=== PATIENT | female | born 1975 ===

== ENCOUNTER 2019-01-23 01:31 | Emergency (ER) | payer SELFPAY ==
--- NOTE | 2019-01-23 02:21 | XRay Report ---
CHEST 2 VIEWS INDICATION / CLINICAL INFORMATION: cough. COMPARISON: None available. FINDINGS: SUPPORT DEVICES: None. HEART / MEDIASTINUM: No significant abnormality. LUNGS / PLEURA: No significant pulmonary or pleural abnormality. No pneumothorax. ADDITIONAL FINDINGS: No significant additional findings. IMPRESSION: 1. No acute findings. Signer Name: Tra Shahid MD Signed: 01/23/2019 2:17 AM Workstation Name: [id number]
--- NOTE | 2019-01-23 02:27 | Emergency Department Report ---
- General Chief Complaint: Adult Asthma Stated Complaint: ASTHMA Time Seen by Provider: 01/23/19 02:10 Source: patient Mode of arrival: Ambulatory Limitations: No Limitations - History of Present Illness Initial Comments: Patient is a 43-year-old female that presents emergency room with complaints of shortness of breath and cough and upper respiratory infection symptoms. Patient states her symptoms been going on for 2 days. Patient states they are worsening. Patient states she has a history of asthma. Patient states she is out of her asthma medications. Patient denies fever. Patient denies chills. Patient denies chest pain. MD Complaint: cough, rhinorrhea, nasal congestion -: Sudden, days(s) Severity: moderate Consistency: constant - Related Data Previous Rx's Medication Instructions Recorded Last Taken Type Doxycycline Hyclate [Doxycycline 100 mg PO Q12HR 10 Days #20 tab 01/23/19 Unknown Rx Hyclate TAB] methylPREDNISolone [Medrol 4MG 4 mg PO DAILY 6 Days #1 tab.ds.pk 01/23/19 Unknown Rx DOSEPAK (21 tabs)] Allergies Allergy/AdvReac Type Severity Reaction Status Date / Time No Known Allergies Allergy Unverified 01/23/19 01:39 ED Review of Systems ROS: Stated complaint: ASTHMA Other details as noted in HPI Constitutional: denies: chills, fever Eyes: denies: eye pain, eye discharge, vision change ENT: denies: ear pain Respiratory: cough, shortness of breath. denies: wheezing Cardiovascular: denies: chest pain, palpitations Endocrine: no symptoms reported Gastrointestinal: denies: abdominal pain, nausea, diarrhea Genitourinary: denies: urgency, dysuria, discharge Musculoskeletal: denies: back pain, joint swelling, arthralgia Skin: denies: rash, lesions Neurological: denies: headache, weakness, paresthesias Psychiatric: denies: anxiety, depression Hematological/Lymphatic: denies: easy bleeding, easy bruising ED Past Medical Hx - Past Medical History Previous Medical History?: Yes Hx Asthma: Yes - Surgical History Past Surgical History?: No - Social History Smoking Status: Never Smoker Substance Use Type: None - Medications Home Medications: Home Medications Medication Instructions Recorded Confirmed Last Taken Type Doxycycline Hyclate [Doxycycline 100 mg PO Q12HR 10 Days #20 tab 01/23/19 Unknown Rx Hyclate TAB] methylPREDNISolone [Medrol 4MG 4 mg PO DAILY 6 Days #1 tab.ds.pk 01/23/19 Unknown Rx DOSEPAK (21 tabs)] ED Physical Exam - General Limitations: No Limitations General appearance: alert, in no apparent distress - Head Head exam: Present: atraumatic, normocephalic - Eye Eye exam: Present: normal appearance - ENT ENT exam: Present: mucous membranes moist, other (mild erythema to the throat. No exudate) - Neck Neck exam: Present: normal inspection, full ROM. Absent: tenderness, meningismus - Respiratory Respiratory exam: Present: normal lung sounds bilaterally. Absent: respiratory distress, wheezes, rales, rhonchi, chest wall tenderness, accessory muscle use, decreased breath sounds - Cardiovascular Cardiovascular Exam: Present: regular rate, normal rhythm. Absent: systolic murmur, diastolic murmur, rubs, gallop - GI/Abdominal GI/Abdominal exam: Present: soft, normal bowel sounds. Absent: distended, tenderness, guarding - Rectal Rectal exam: Present: deferred - Extremities Exam Extremities exam: Present: normal inspection - Back Exam Back exam: Present: normal inspection - Neurological Exam Neurological exam: Present: alert, oriented X3 - Psychiatric Psychiatric exam: Present: normal affect, normal mood - Skin Skin exam: Present: warm, dry, intact, normal color. Absent: rash ED Course Vital Signs 01/23/19 01/23/19 01/23/19 01:35 02:16 02:17 Temperature 98.7 F 98.7 F Pulse Rate 77 81 Respiratory 12 19 Rate Blood Pressure 153/89 174/91 Blood Pressure 171/90 [Left] O2 Sat by Pulse 97 99 96 Oximetry 01/23/19 01/23/19 02:30 02:45 Temperature Pulse Rate Respiratory Rate Blood Pressure 174/91 Blood Pressure 158/91 [Left] O2 Sat by Pulse 98 Oximetry - Reevaluation(s) Reevaluation #1: I discussed all clinical findings and result patient. Patient stable for discharge. Patient was discharged home. Patient will be given antibiotics and steroids. Patient given discharge instructions. Patient voiced understanding of discharge instructions. 01/23/19 02:23 ED Medical Decision Making - Radiology Data Radiology results: report reviewed, image reviewed interpreted by me: No acute findings on chest x-ray. - Medical Decision Making Patient is a 43-year-old female that presents emergency room with complaints of cough and asthmatic sounds. Patient complains of shortness of breath and wheezing. Patient's clinical findings are consistent with bronchitis and upper respiratory infection. Patient given steroids and antibiotics. Patient denied any wheezing in the ER. Patient had a chest x-ray done and was negative. She is stable for discharge. Patient discharged home. He is vital signs stable. - Differential Diagnosis cough. Wheeze. URI. Bronchitis. Critical care attestation.: If time is entered above; I have spent that time in minutes in the direct care of this critically ill patient, excluding procedure time. ED Disposition Clinical Impression: SOB (shortness of breath), Cough, Bronchitis Upper respiratory infection Qualifiers: URI type: unspecified URI Qualified Code(s): J06.9 - Acute upper respiratory infection, unspecified Disposition: TO HOME OR SELFCARE Is pt being admited?: No Does the pt Need Aspirin: No Condition: Stable Instructions: Upper Respiratory Infection (ED), Acute Bronchitis (ED) Additional Instructions: Patient to follow-up with primary care in 2-3 days. Patient to return to ER if condition worsens. Patient to rest. Patient to increase water. Patient to take meds as directed. Patient to take Tylenol or ibuprofen when necessary for pain or fever. Prescriptions: Doxycycline Hyclate [Doxycycline Hyclate TAB] 100 mg PO Q12HR 10 Days #20 tab methylPREDNISolone [Medrol 4MG DOSEPAK (21 tabs)] 4 mg PO DAILY 6 Days #1 tab.ds.pk Referrals: PRIMARY CARE, [Primary Care Provider] - 3-5 Days Time of Disposition: 02:29
[2019-01-23 03:49] VITALS: BP 158/91
== END 2019-01-23 02:45 | disposition home or self-care (01) ==
LOC: ED 01:31
DX: J40 Bronchitis, not specified as acute or chronic (principal); J06.9 Acute upper respiratory infection, unspecified; Z79.899 Other long term (current) drug therapy
CPT/HCPCS: 71046

== ENCOUNTER 2020-06-29 23:16 | Inpatient (IN) | payer OTHER ==
[2020-06-29] MEDS ORDERED: ACETAMINOPHEN 500 MG TAB PO STA (23:43)
[2020-06-29] MEDS ORDERED: AZITHROMYCIN/NS 500 MG/250 ML 500 MG/250 ML BAG IV SCH (23:45)
[2020-06-29] MEDS ORDERED: SODIUM CHLORIDE 0.9% 1000 ML IV SOLN IV ONE (23:56)
[2020-06-29] MEDS ORDERED: cefTRIAXone/NS 2 GM/100 ML 2 GM/100 ML BAG IV ONE (23:57)
[2020-06-29] MEDS ORDERED: dexAMETHasone 4 MG/ML VIAL IV ONE (23:57)
--- NOTE | 2020-06-29 23:58 | Emergency Department Report ---
ED Shortness of Breath HPI - General Chief Complaint: Back Pain/Injury Stated Complaint: CRISTIAN/CHEST PAIN Time Seen by Provider: 06/29/20 23:49 Source: patient Mode of arrival: Ambulatory Limitations: No Limitations - History of Present Illness Initial Comments: Patient is a 44-year-old female that presents emergency room with complaints of chest pain and back pain and shortness of breath. Patient states that her chest pain is in her bilateral lower ribs. Patient states the pain is a 5 out of 10. Patient states that the chest pain is better with rest and worse with deep breath and cough and movement. Patient also complains of cough which is a dry cough. Patient complains of fever and chills. Patient states the back pain is in her mid upper back and is a 5 out of 10. Patient states the back pain is better with rest and worse with movement and cough. Patient states that her shortness of breath is better with rest and worse with exertion. Patient states she saw her primary care yesterday and was given doxycycline and meloxicam. Patient states she is not sure why he gave her the antibiotics. Patient has not been tested for COVID-19. Patient denies recent travel. Patient denies recent international travel. Patient denies exposure to the novel coronavirus. Patient denies sick contacts. Patient denies loss of smell.. Patient denies diarrhea. Patient denies coming in contact with anybody with symptoms of the novel coronavirus. Patient states she is not had the COVID-19 vaccine. Complaint: shortness of breath, cough -: Sudden, days(s) Radiation: back, other (Chest) Pain Scale: 5 Quality: throbbing Consistency: constant Improves With: rest Worsens With: exertion Context: recent URI Associated Symptoms: chest pain, fever, cough Treatments Prior to Arrival: other (Doxycycline and meloxicam) - Related Data Home Oxygen Therapy: No Previous Rx's Medication Instructions Recorded Last Taken Type Doxycycline Hyclate [Doxycycline 100 mg PO Q12HR 10 Days #20 tab 01/23/19 Unknown Rx Hyclate TAB] methylPREDNISolone [Medrol 4MG 4 mg PO DAILY 6 Days #1 tab.ds.pk 01/23/19 Unknown Rx DOSEPAK (21 tabs)] Allergies Allergy/AdvReac Type Severity Reaction Status Date / Time No Known Allergies Allergy Verified 06/29/20 23:49 ED Review of Systems ROS: Stated complaint: CRISTIAN/CHEST PAIN Other details as noted in HPI Constitutional: chills, fever Eyes: denies: eye pain, eye discharge, vision change ENT: denies: ear pain, throat pain Respiratory: shortness of breath. denies: cough, wheezing Cardiovascular: as per HPI, chest pain. denies: palpitations Endocrine: no symptoms reported Gastrointestinal: denies: abdominal pain, nausea, diarrhea Genitourinary: denies: urgency, dysuria, discharge Musculoskeletal: as per HPI, back pain. denies: joint swelling, arthralgia Skin: denies: rash, lesions Neurological: denies: headache, weakness, paresthesias Psychiatric: denies: anxiety, depression Hematological/Lymphatic: denies: easy bleeding, easy bruising ED Past Medical Hx - Past Medical History Previous Medical History?: Yes Hx Asthma: Yes - Surgical History Past Surgical History?: No - Family History Family history: no significant - Social History Smoking Status: Never Smoker Substance Use Type: None - Medications Home Medications: Home Medications Medication Instructions Recorded Confirmed Last Taken Type Doxycycline Hyclate [Doxycycline 100 mg PO Q12HR 10 Days #20 tab 01/23/19 Unknown Rx Hyclate TAB] methylPREDNISolone [Medrol 4MG 4 mg PO DAILY 6 Days #1 tab.ds.pk 01/23/19 Unknown Rx DOSEPAK (21 tabs)] ED Physical Exam - General Limitations: No Limitations General appearance: alert, in no apparent distress - Head Head exam: Present: atraumatic, normocephalic - Eye Eye exam: Present: normal appearance - ENT ENT exam: Present: mucous membranes moist - Neck Neck exam: Present: normal inspection - Respiratory Respiratory exam: Present: rhonchi, decreased breath sounds - Cardiovascular Cardiovascular Exam: Present: regular rate, normal rhythm. Absent: systolic murmur, diastolic murmur, rubs, gallop - GI/Abdominal GI/Abdominal exam: Present: soft, normal bowel sounds - Extremities Exam Extremities exam: Present: normal inspection - Back Exam Back exam: Present: normal inspection - Neurological Exam Neurological exam: Present: alert, oriented X3 - Psychiatric Psychiatric exam: Present: normal affect, normal mood - Skin Skin exam: Present: warm, dry, intact, normal color. Absent: rash ED Course Vital Signs 06/29/20 06/30/20 06/30/20 23:32 00:00 00:16 Temperature 101.4 F H Pulse Rate 125 H 121 H 115 H Respiratory 18 24 24 Rate Blood Pressure 147/91 129/100 130/85 O2 Sat by Pulse 94 99 96 Oximetry 06/30/20 06/30/20 06/30/20 00:46 00:51 01:00 Temperature Pulse Rate 110 H 107 H Respiratory 19 18 26 H Rate Blood Pressure 124/63 130/85 O2 Sat by Pulse 97 98 Oximetry 06/30/20 06/30/20 06/30/20 01:15 01:45 02:10 Temperature 98.5 F Pulse Rate 104 H 103 H Respiratory 21 25 H Rate Blood Pressure 132/61 O2 Sat by Pulse 98 98 Oximetry - Reevaluation(s) Reevaluation #1: Patient's baseline oxygen saturation 94%. Patient's oxygen saturation decreased to 88% on ambulation. 06/29/20 23:58 Reevaluation #2: Patient is heart rate is improving. 06/30/20 01:26 Reevaluation #3: Patient's fever is improved. Patient heart rate is improved. Patient placed on oxygen. Patient has received 2 L of fluid and the rest of the 3 L of fluids regi l be held. I discussed all results with patient. I discussed plan of care with patient. Patient agrees with plan of care and admission. Patient to be admitted to the hospitalist service. 06/30/20 02:26 - Consultations Consultation #1: Hospitalist consulted for admission. Hospitalist to admit patient. 06/30/20 02:27 Consultation #2: Vascular surgery consulted. Dr. Louie agrees with current plan of care. 06/30/20 03:07 ED Medical Decision Making - Lab Data Result diagrams: 06/30/20 00:01 06/30/20 00:01 - EKG Data -: EKG Interpreted by Me EKG shows normal: sinus rhythm, axis, intervals, QRS complexes, ST-T waves Rate: tachycardia - Radiology Data Radiology results: report reviewed, image reviewed interpreted by me: CHEST 1 VIEW 06/29/2020 11:07 PM INDICATION / CLINICAL INFORMATION: possible Sepsis. COMPARISON: None available. FINDINGS: SUPPORT DEVICES: None. HEART / MEDIASTINUM: Moderate cardiomegaly LUNGS / PLEURA: Increased opacity right base likely represents a combination of pleural fluid and consolidation. Left base not well evaluated due to body habitus. No pneumothorax. ADDITIONAL FINDINGS: No significant additional findings. IMPRESSION: 1. Suspected left basilar effusion with associated consolidation. 2. Stable cardiomegaly. CTA CHEST WITH CONTRAST INDICATION / CLINICAL INFORMATION: Patient complains of shortness of breath. Tachicardia, Hypoxia. TECHNIQUE: Axial CT images were obtained through the chest after injection of IV contrast. 3 plane MIP and/or 3D reconstructions were produced. All CT scans at this location are performed using CT dose reduction for ALARA by means of automated exposure control. COMPARISON: None available. FINDINGS: PULMONARY ARTERIES: No pulmonary emboli. THORACIC AORTA: No significant abnormality. HEART: No significant abnormality. CORONARY ARTERY CALCIFICATION: None. MEDIASTINUM / JOSSELIN: No significant abnormality. PLEURA: Small right effusion. No pneumothorax. LUNGS: Patchy bilateral pneumonia with more dense infiltrate at the right lower lobe worrisome for infarct. ADDITIONAL FINDINGS: Prominent nodes right axilla. The largest measures 1.3 cm in the greatest short axis dimension. UPPER ABDOMEN: No acute findings. SKELETAL STRUCTURES: No significant osseous abnormality. IMPRESSION: 1. Limited evaluation of the pulmonary arteries. Right lower lobe pulmonary embolus with prominent associated infarct. 2. Patchy infiltrates typical of Covid 19 infection. 3. Mildly prominent right axillary nodes may be reactive. - Medical Decision Making Patient is a 44-year-old female that presents emergency room with complaints of bilateral lower rib pain, shortness of breath, fever and chills. Patient had a sepsis protocol activated from triage due to the patient's high fever and tachycardia. Patient initially had 4.5 L of fluid or in accordance with the sepsis protocol however 1/2 to 2 L were given and the rest were held since the patient was found to have Covid. Patient was started on Rocephin and Zithromax and Decadron immediately after initial evaluation. Patient had labs done which were multiple abnormalities. Lab abnormalities include elevated D-dimer, elevated WBC, elevated COVID-19 inflammatory markers, abnormal chemistry. Patient had a chest x-ray shows unilateral pneumonia. Patient then had a CTA to rule out a PE after an elevated D-dimer, hypoxia and tachycardia noted. Patient CTA of the chest shows a RIGHT PE with pulmonary infarct. Patient started on a heparin protocol with a heparin bolus. Patient admitted to the ICU and to the hospital service for further evaluation and treatment. Critical care time documented due to the multiple reassessments, prolonged time at the bedside, interpretation of diagnostics and labs. - Differential Diagnosis Chest pain, shortness of breath, Covid, PE, pneumonia, hypoxia Critical Care Time: Yes Critical care time in (mins) excluding proc time.: 35 Critical care attestation.: If time is entered above; I have spent that time in minutes in the direct care of this critically ill patient, excluding procedure time. Critical Care Time: 35 MINUTES ED Disposition Clinical Impression: SOB (shortness of breath), Tachycardia, Elevated d-dimer, Pulmonary infarction, Person under investigation for COVID-19 Respiratory failure Qualifiers: Chronicity: acute Respiratory failure complication: hypoxia Qualified Code(s): J96.01 - Acute respiratory failure with hypoxia Sepsis Qualifiers: Sepsis type: sepsis due to unspecified organism Sepsis acute organ dysfunction status: with acute organ dysfunction Severe sepsis acute organ dysfunction type: acute respiratory failure Acute respiratory failure type: with hypoxia Severe sepsis shock status: without septic shock Qualified Code(s): A41.9 - Sepsis, unspecified organism Pneumonia Qualifiers: Pneumonia type: due to unspecified organism Laterality: unspecified laterality Lung location: unspecified part of lung Qualified Code(s): J18.9 - Pneumonia, unspecified organism Pulmonary embolism Qualifiers: Pulmonary embolism type: unspecified Chronicity: acute Acute cor pulmonale presence: without acute cor pulmonale Qualified Code(s): I26.99 - Other pulmonary embolism without acute cor pulmonale Disposition: OP ADMIT IP TO THIS HOSP Is pt being admited?: Yes Does the pt Need Aspirin: No Condition: Critical Instructions: Bacterial Pneumonia (ED) Referrals: PRIMARY CARE, [Primary Care Provider] - 3-5 Days Time of Disposition: :
[2020-06-30 00:20] LABS: Hemoglobin 12.5 gm/dl (10.1-14.3); Mean Corpuscular HGB Conc 34 % (30-34); Mean Corpuscular Volume 90 fl (79-97); Platelet Count 375 K/mm3 (140-440); Red Blood Count 4.11 M/mm3 (3.65-5.03); Red Cell Distribution Width 13.7 % (13.2-15.2)
--- NOTE | 2020-06-30 00:21 | XRay Report ---
CHEST 1 VIEW 06/29/2020 11:07 PM INDICATION / CLINICAL INFORMATION: possible Sepsis. COMPARISON: None available. FINDINGS: SUPPORT DEVICES: None. HEART / MEDIASTINUM: Moderate cardiomegaly LUNGS / PLEURA: Increased opacity right base likely represents a combination of pleural fluid and con solidation. Left base not well evaluated due to body habitus. No pneumothorax. ADDITIONAL FINDINGS: No significant additional findings. IMPRESSION: 1. Suspected left basilar effusion with associated consolidation. 2. Stable cardiomegaly. Signer Name: Khoa Musa MD Signed: 06/30/2020 12:17 AM Workstation Name: [id number]
[2020-06-30 00:35] LABS: INR 1.35 (0.87-1.13)
[2020-06-30 00:44] LABS: Alanine Aminotransferase 16 units/L (7-56); Albumin 3.2 g/dL (3.9-5); Blood Urea Nitrogen 5 mg/dL (7-17); Calcium 8.9 mg/dL (8.4-10.2); Hemolysis Index 3
[2020-06-30 00:47] LABS: BUN/Creatinine Ratio 10
[2020-06-30 01:16] LABS: C-Reactive Protein 31.5 mg/dL (0.00-1.30)
[2020-06-30 01:17] LABS: Total Cells Counted 100
[2020-06-30 01:20] LABS: Platelet Estimate Consistent w Auto; RBC Morphology Normal
[2020-06-30] MEDS ORDERED: HEPARIN 10,000 UNITS/10 ML VIAL IV ONE (02:17)
--- NOTE | 2020-06-30 02:22 | Cat Scan Report ---
CTA CHEST WITH CONTRAST INDICATION / CLINICAL INFORMATION: Patient complains of shortness of breath. Tachicardia, Hypoxia. TECHNIQUE: Axial CT images were obtained through the chest after injection of IV contrast. 3 plane UT P and/or 3D reconstructions were produced. All CT scans at this location are performed using CT dose reduction for ALARA by means of automated exposure control. COMPARISON: None available. FINDINGS: PULMONARY ARTERIES: No pulmonary emboli. THORACIC AORTA: No significant abnormality. HEART: No significant abnormality. CORONARY ARTERY CALCIFICATION: None. MEDIASTINUM / JOSSELIN: No significant abnormality. PLEURA: Small right effusion. No pneumothorax. LUNGS: Patchy bilateral pneumonia with more dense infiltrate at the right lower lobe worrisome for in farct. ADDITIONAL FINDINGS: Prominent nodes right axilla. The largest measures 1.3 cm in the greatest short axis dimension. UPPER ABDOMEN: No acute findings. SKELETAL STRUCTURES: No significant osseous abnormality. IMPRESSION: 1. Limited evaluation of the pulmonary arteries. Right lower lobe pulmonary embolus with prominent as sociated infarct. 2. Patchy infiltrates typical of Covid 19 infection. 3. Mildly prominent right axillary nodes may be reactive. CRITICAL RESULT: Time of Discovery (ADDICTION SPECIALIST/CDT): 1:14 AM Time of Communication (ADDICTION SPECIALIST/CDT): 1:16 AM Licensed Practitioner Receiving Report: Dr. Maier Read-Back Performed: Yes. Signer Name: Khoa Musa MD Signed: 06/30/2020 2:18 AM Workstation Name: [id number]
[2020-06-30] MEDS ORDERED: HEPARIN/ 0.45% NACL DRIP 25,000 UNIT/500 ML BAG IV SCH (03:00)
[2020-06-30] MEDS ORDERED: ONDANSETRON 4 MG/2 ML INJ IV PRN (03:28)
[2020-06-30] MEDS ORDERED: MAGNESIUM HYDROXIDE (MOM) ORAL LIQD UDC PO PRN (03:28)
[2020-06-30] MEDS ORDERED: MORPHINE 2 MG/1 ML INJ IV PRN (03:28)
[2020-06-30] MEDS ORDERED: ACETAMINOPHEN 325 MG TAB PO PRN (03:28)
--- NOTE | 2020-06-30 03:36 | History and Physical Report ---
History of Present Illness Date of examination: 06/30/20 Date of admission: 06/30/20 02:28 Chief complaint: Chest Pain Shortness of Breath History of present illness: 44-year-old -[place] female presents to the emergency room today complaining of chest pain, back pain and shortness of breath which started few days ago. She has also had some low-grade fever and cough. Chest pain and shortness of breath is worse on exertion and improves upon resting. She also experiences some chest discomfort when she takes a deep breath. On a scale of 10 pain was about 5/10 in severity. She had gone to her primary care physician yesterday and was given doxycycline and meloxicam. She has not had any significant improvement. Patient denies any sick contacts and no recent travel. Denies any contact with anyone with COVID-19. Upon arrival in the emergency room today patient was quite tachycardic and tachypneic. She had a fever of 101.4 F. Work-up today, labs reveal leukocytosis of 21.9, she had an hyponatremia of 130. Chest x-ray reveals suspected left basilar effusion with associated consolidation and stable marked cardiomegaly. CT angiogram shows right lower lobe pulmonary embolus with prominent associated impact. Patchy infiltrates typical of COVID-19 infection, mildly prominent right axilla region nodes may be reactive. Patient is being admitted with pneumonia with possible Covid, pulmonary embolus which infarction. Past History Past Medical History: other (Asthma) Past Surgical History: No surgical history Social history: no significant social history Family history: no significant family history Medications and Allergies Allergies Allergy/AdvReac Type Severity Reaction Status Date / Time No Known Allergies Allergy Verified 06/29/20 23:49 Home Medications Medication Instructions Recorded Confirmed Last Taken Type Doxycycline Hyclate [Doxycycline 100 mg PO Q12HR 10 Days #20 tab 01/23/19 Unknown Rx Hyclate TAB] methylPREDNISolone [Medrol 4MG 4 mg PO DAILY 6 Days #1 tab.ds.pk 01/23/19 Unknown Rx DOSEPAK (21 tabs)] Active Meds: Active Medications Acetaminophen (Acetaminophen 325 Mg Tab) 650 mg PO Q6H PRN PRN Reason: Pain MILD(1-3)/Fever >100.5/LAKE Azithromycin (Zithromax/Ns) 500 mg in 250 mls @ 250 mls/hr IV Q24H [facility] Last Admin: 06/30/20 01:09 Dose: 250 mls/hr Documented by: Heparin Sodium/Sodium Chloride (Heparin/ 0.45% Nacl-25,000 Unit/500 Ml) 25,000 unit in 500 mls @ 30 mls/hr IV TITR [facility]; Protocol Last Admin: 06/30/20 02:55 Dose: 1,500 units/hr, 30 mls/hr Documented by: Ceftriaxone Sodium (Rocephin/Ns 2 Gm/100 Ml) 2 gm in 100 mls @ 200 mls/hr IV Q24H [facility]; Protocol Azithromycin (Zithromax/Ns) 500 mg in 250 mls @ 250 mls/hr IV Q24H [facility]; Protocol Magnesium Hydroxide (Magnesium Hydroxide (Mom) Oral Liqd Udc) 30 ml PO Q4H PRN PRN Reason: Constipation Morphine Sulfate (Morphine 2 Mg/1 Ml Inj) 2 mg IV Q4H PRN PRN Reason: Pain, Moderate (4-6) Ondansetron HCl (Ondansetron 4 Mg/2 Ml Inj) 4 mg IV Q8H PRN PRN Reason: Nausea And Vomiting Sodium Chloride (Sodium Chloride 0.9% 10 Ml Flush Syringe) 10 ml IV BID CAREY Sodium Chloride (Sodium Chloride 0.9% 10 Ml Flush Syringe) 10 ml IV PRN PRN PRN Reason: LINE FLUSH Review of Systems Constitutional: fever, chills Ears, nose, mouth and throat: no nasal congestion, no sore throat Cardiovascular: chest pain, no palpitations Respiratory: cough, shortness of breath Gastrointestinal: no abdominal pain, no nausea, no vomiting, no diarrhea Genitourinary Female: no pelvic pain, no flank pain, no dysuria, no hematuria Musculoskeletal: no neck pain, no low back pain Integumentary: no rash, no pruritis Neurological: no headaches, no confusion Psychiatric: no anxiety, no depression Endocrine: no polyphagia, no polydipsia, no polyuria, no nocturia Exam - Constitutional Vitals: Temp Pulse Resp BP Pulse Ox 98.5 F 104 H 22 139/97 99 06/30/20 02:10 06/30/20 03:16 06/30/20 03:16 06/30/20 03:16 06/30/20 03:16 General appearance: Present: mild distress, well-nourished, obese, other (Anxious) - EENT Eyes: Present: PERRL, EOM intact. Absent: scleral icterus ENT: hearing intact, clear oral mucosa, dentition normal - Neck Neck: Present: supple, normal ROM - Respiratory Respiratory effort: normal Respiratory: bilateral: rales - Cardiovascular Rhythm: regular Heart Sounds: Present: S1 & S2. Absent: gallop, systolic murmur, diastolic murmur, rub, click Peripheral Pulses: within normal limits - Abdominal General gastrointestinal: Present: soft, non-tender, non-distended. Absent: mass - Integumentary Integumentary: Present: clear, warm, dry, normal turgor. Absent: rash - Musculoskeletal Musculoskeletal: strength equal bilaterally - Psychiatric Psychiatric: appropriate mood/affect, intact judgment & insight, memory intact, cooperative - Neurologic Neurologic: CNII-XII intact, no focal deficits, moves all extremities Results - Labs CBC & Chem 7: 06/30/20 00:01 06/30/20 00:01 Labs: Abnormal lab results 06/30/20 06/30/20 06/30/20 Range/Units 00:01 00:01 00:01 WBC 21.9 H (4.5-11.0) K/mm3 Seg Neuts % (Manual) 73.0 H (40.0-70.0) % Monocytes % (Manual) 13.0 H (0.0-7.3) % Seg Neutrophils # Man 16.0 H (1.8-7.7) K/mm3 Monocytes # (Manual) 2.8 H (0.0-0.8) K/mm3 PT 16.5 H (12.2-14.9) Sec. INR 1.35 H (0.87-1.13) D-Dimer 3794.72 H (0-234) ng/mlDDU VBG pH (7.320-7.420) Sodium 130 L (137-145) mmol/L Chloride 96.0 L (98-107) mmol/L Carbon Dioxide 20 L (22-30) mmol/L BUN 5 L (7-17) mg/dL Creatinine 0.5 L (0.6-1.2) mg/dL Glucose 162 H (65-100) mg/dL Ferritin (10.0-200.0) ng/mL Alkaline Phosphatase 130 H (35-129) units/L Lactate Dehydrogenase (91-180) units/L C-Reactive Protein (0.00-1.30) mg/dL Albumin 3.2 L (3.9-5) g/dL 06/30/20 06/30/20 06/30/20 Range/Units 00:01 00:04 00:04 WBC (4.5-11.0) K/mm3 Seg Neuts % (Manual) (40.0-70.0) % Monocytes % (Manual) (0.0-7.3) % Seg Neutrophils # Man (1.8-7.7) K/mm3 Monocytes # (Manual) (0.0-0.8) K/mm3 PT (12.2-14.9) Sec. INR (0.87-1.13) D-Dimer (0-234) ng/mlDDU VBG pH 7.439 H (7.320-7.420) Sodium (137-145) mmol/L Chloride (98-107) mmol/L Carbon Dioxide (22-30) mmol/L BUN (7-17) mg/dL Creatinine (0.6-1.2) mg/dL Glucose (65-100) mg/dL Ferritin 336.8 H (10.0-200.0) ng/mL Alkaline Phosphatase (35-129) units/L Lactate Dehydrogenase 318 H (91-180) units/L C-Reactive Protein 31.50 H (0.00-1.30) mg/dL Albumin (3.9-5) g/dL Assessment and Plan - Patient Problems (1) Pneumonia Current Visit: Yes Status: Acute Qualifiers: Pneumonia type: due to unspecified organism Laterality: unspecified laterality Lung location: unspecified part of lung Qualified Code(s): J18.9 - Pneumonia, unspecified organism Plan to address problem: Patient placed on empiric IV antibiotics. We will await culture results. (2) Pulmonary embolism Current Visit: Yes Status: Acute Qualifiers: Pulmonary embolism type: unspecified Chronicity: acute Acute cor pulmonale presence: without acute cor pulmonale Qualified Code(s): I26.99 - Other pulmonary embolism without acute cor pulmonale Plan to address problem: Patient was started on anticoagulation with heparin drip. (3) Pulmonary infarction Current Visit: Yes Status: Acute Plan to address problem: Secondary to the pulmonary embolus. We will keep oxygen saturation greater equal to 94%. Vascular surgery also consulted for evaluation and recommendation. (4) Person under investigation for COVID-19 Current Visit: Yes Status: Acute Plan to address problem: Patient placed on isolation precautions. Will await COVID-19 testing. (5) DVT prophylaxis Current Visit: Yes Status: Acute Plan to address problem: Patient currently on anticoagulation. (6) Full code status Current Visit: Yes Status: Acute Plan to address problem: Patient is full code.
[2020-06-30 08:15] LABS: Bilirubin,Urine NEG (Negative); Blood,Urine NEG (Negative); Color,Urine Yellow (Yellow); Protein,Urine <15 mg/dL mg/dL (Negative); RBC,Urine < 1.0 /HPF (0.0-6.0); Urobilinogen,Urine < 2.0 mg/dL (<2.0)
--- NOTE | 2020-06-30 11:22 | Consultation ---
History of Present Illness - Reason for Consult Consult date: 06/30/20 Pulmonary embolism - History of Present Illness Patient with a history of chest pain and shortness of breath who presented to the ER and was found to have right sided pulmonary embolism. No evidence of right heart strain. Additionally, the patient's pulmonary findings are suggestive of superimposed disease. Time of examination, the patient is breathing comfortably on room air. No complaints of chest pain or shortness of breath. She has ambulated with assistance to use her potty chair with no shortness of breath per patient. Past History Past Medical History: other (Asthma, brother with pulmonary embolism) Past Surgical History: No surgical history Social history: no significant social history Family history: no significant family history Medications and Allergies Allergies Allergy/AdvReac Type Severity Reaction Status Date / Time No Known Allergies Allergy Verified 06/29/20 23:49 Home Medications Medication Instructions Recorded Confirmed Last Taken Type Doxycycline Hyclate [Doxycycline 100 mg PO Q12HR 10 Days #20 tab 01/23/19 Unknown Rx Hyclate TAB] methylPREDNISolone [Medrol 4MG 4 mg PO DAILY 6 Days #1 tab.ds.pk 01/23/19 Unknown Rx DOSEPAK (21 tabs)] Active Meds: Active Medications Acetaminophen (Acetaminophen 325 Mg Tab) 650 mg PO Q6H PRN PRN Reason: Pain MILD(1-3)/Fever >100.5/LAKE Heparin Sodium/Sodium Chloride (Heparin/ 0.45% Nacl-25,000 Unit/500 Ml) 25,000 unit in 500 mls @ 30 mls/hr IV TITR [facility]; Protocol Last Admin: 06/30/20 02:55 Dose: 1,500 units/hr, 30 mls/hr Documented by: Ceftriaxone Sodium (Rocephin/Ns 2 Gm/100 Ml) 2 gm in 100 mls @ 200 mls/hr IV Q24H [facility]; Protocol Azithromycin (Zithromax/Ns) 500 mg in 250 mls @ 250 mls/hr IV Q24H [facility]; Protocol Magnesium Hydroxide (Magnesium Hydroxide (Mom) Oral Liqd Udc) 30 ml PO Q4H PRN PRN Reason: Constipation Morphine Sulfate (Morphine 2 Mg/1 Ml Inj) 2 mg IV Q4H PRN PRN Reason: Pain, Moderate (4-6) Ondansetron HCl (Ondansetron 4 Mg/2 Ml Inj) 4 mg IV Q8H PRN PRN Reason: Nausea And Vomiting Pantoprazole Sodium (Pantoprazole 40 Mg Inj) 40 mg IV QDAY [facility] Sodium Chloride (Sodium Chloride 0.9% 10 Ml Flush Syringe) 10 ml IV BID CAREY Sodium Chloride (Sodium Chloride 0.9% 10 Ml Flush Syringe) 10 ml IV PRN PRN PRN Reason: LINE FLUSH Review of Systems All systems: negative Exam - Constitutional Vitals: Temp Pulse Resp BP Pulse Ox 98.5 F 97 H 19 127/68 99 06/30/20 02:10 06/30/20 05:30 06/30/20 05:30 06/30/20 05:30 06/30/20 05:30 General appearance: Present: no acute distress, obese - EENT Eyes: Present: EOM intact ENT: hearing intact - Neck Neck: Present: supple, normal ROM - Respiratory Respiratory effort: normal - Extremities Extremity abnormal: edema - Abdominal General gastrointestinal: Present: deferred - Rectal Rectal Exam: deferred - Psychiatric Psychiatric: appropriate mood/affect, cooperative Results - Labs CBC & Chem 7: 06/30/20 00:01 06/30/20 00:01 Labs: Abnormal lab results 06/30/20 06/30/20 06/30/20 Range/Units 00:01 00:01 00:01 WBC 21.9 H (4.5-11.0) K/mm3 Seg Neuts % (Manual) 73.0 H (40.0-70.0) % Monocytes % (Manual) 13.0 H (0.0-7.3) % Seg Neutrophils # Man 16.0 H (1.8-7.7) K/mm3 Monocytes # (Manual) 2.8 H (0.0-0.8) K/mm3 PT 16.5 H (12.2-14.9) Sec. INR 1.35 H (0.87-1.13) D-Dimer 3794.72 H (0-234) ng/mlDDU Heparin Anti-Xa Level (0.3-0.7) U.I./ml VBG pH (7.320-7.420) Sodium 130 L (137-145) mmol/L Chloride 96.0 L (98-107) mmol/L Carbon Dioxide 20 L (22-30) mmol/L BUN 5 L (7-17) mg/dL Creatinine 0.5 L (0.6-1.2) mg/dL Glucose 162 H (65-100) mg/dL Ferritin (10.0-200.0) ng/mL Alkaline Phosphatase 130 H (35-129) units/L Lactate Dehydrogenase (91-180) units/L C-Reactive Protein (0.00-1.30) mg/dL Albumin 3.2 L (3.9-5) g/dL 06/30/20 06/30/20 06/30/20 Range/Units 00:01 00:04 00:04 WBC (4.5-11.0) K/mm3 Seg Neuts % (Manual) (40.0-70.0) % Monocytes % (Manual) (0.0-7.3) % Seg Neutrophils # Man (1.8-7.7) K/mm3 Monocytes # (Manual) (0.0-0.8) K/mm3 PT (12.2-14.9) Sec. INR (0.87-1.13) D-Dimer (0-234) ng/mlDDU Heparin Anti-Xa Level (0.3-0.7) U.I./ml VBG pH 7.439 H (7.320-7.420) Sodium (137-145) mmol/L Chloride (98-107) mmol/L Carbon Dioxide (22-30) mmol/L BUN (7-17) mg/dL Creatinine (0.6-1.2) mg/dL Glucose (65-100) mg/dL Ferritin 336.8 H (10.0-200.0) ng/mL Alkaline Phosphatase (35-129) units/L Lactate Dehydrogenase 318 H (91-180) units/L C-Reactive Protein 31.50 H (0.00-1.30) mg/dL Albumin (3.9-5) g/dL 06/30/20 Range/Units 10:09 WBC (4.5-11.0) K/mm3 Seg Neuts % (Manual) (40.0-70.0) % Monocytes % (Manual) (0.0-7.3) % Seg Neutrophils # Man (1.8-7.7) K/mm3 Monocytes # (Manual) (0.0-0.8) K/mm3 PT (12.2-14.9) Sec. INR (0.87-1.13) D-Dimer (0-234) ng/mlDDU Heparin Anti-Xa Level 0.16 L (0.3-0.7) U.I./ml VBG pH (7.320-7.420) Sodium (137-145) mmol/L Chloride (98-107) mmol/L Carbon Dioxide (22-30) mmol/L BUN (7-17) mg/dL Creatinine (0.6-1.2) mg/dL Glucose (65-100) mg/dL Ferritin (10.0-200.0) ng/mL Alkaline Phosphatase (35-129) units/L Lactate Dehydrogenase (91-180) units/L C-Reactive Protein (0.00-1.30) mg/dL Albumin (3.9-5) g/dL - Imaging and Cardiology CT scan - chest: image reviewed Assessment and Plan Patient with a history of pulmonary embolism. She does not complain of any recent leg pain. However, ultrasound will be ordered. She does have a strong family history of DVT and would consider a hypercoagulable work-up. This may be done with the patient either as an inpatient or outpatient. Currently on anticoagulation with a heparin drip. She will need to be transitioned to an oral anticoagulant for 6 months. Would recommend Eliquis with an initiation dose of 10 mg twice a day followed by maintenance dose of 5 mg twice a day for a total of 6months if the patient is able to tolerate it. No interventions are planned.
--- NOTE | 2020-06-30 11:53 | Event Note ---
Date: 06/30/20 Patient seen and examined This the second visit after midnight 44-year-old -Israeli female presents to the emergency room complaining of chest pain, back pain and shortness of breath Upon arrival in the emergency room patient was quite tachycardic and tachypneic. She had a fever of 101.4 F. labs reveal leukocytosis of 21.9, she had an hyponatremia of 130. Chest x-ray reveals suspected left basilar effusion with associated consolidation and stable marked cardiomegaly. CT angiogram shows right lower lobe pulmonary embolus with prominent associated impact. Patchy infiltrates typical of COVID-19 infection, mildly prominent right axilla region nodes may be reactive. Patient was admitted with pneumonia with possible Covid, pulmonary embolus which infarction. Covid test currently pending, follow current management and plan as dictated in the HPI If Covid test is positive we will continue dexamethasone and ID consult for possible remdesivir
--- NOTE | 2020-06-30 12:09 | Electrocardiograph Report ---
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
--- NOTE | 2020-06-30 12:10 | Consultation ---
History of Present Illness - Reason for Consult Consult date: 06/30/20 pneumonia r/o COVID Requesting physician: TANYA APONTE - History of Present Illness 44-year-old male female with history of morbid obesity admitted on 06/30/2020 secondary to few days history of chest pain, back pain, shortness of breath and cough. Patient reports also low-grade fever. Patient also reports dyspnea on exertion. Chest pain is 5 out of 10 in severity. Patient went to see her [facility] physician who gave her doxycycline and meloxicam and told her to come to the emergency room if not better. Patient was born in [facility]. On arrival, temperature 101.4, HR 125, RR 18, O2 sat 94%, BP 147/91. Initial WBC 21.9. Hemoglobin 12.5. Platelets 375. Creatinine 0.5. LFTs normal. D-dimer 3794. Ferritin 336. CRP 21. Urinalysis negative. Blood culture no growth today. CT angiogram shows right lower lobe pulmonary embolus with prominent associated with Patchy infiltrates typical of COVID-19 infection, mildly prominent right axilla region nodes may be reactive. SARS-CoV-2 PCR positive. Review of Systems: positive in bold print General: fever, chills, malaise Cutaneous: rash, pruritus Head: headaches or injury Eyes: changes in vision, eye pain, double vision Ears: ear pain, ear discharge, ringing or hearing loss Nose: nose bleeding, stuffiness Mouth & throat: bleeding gums, horseness, no dental problems, or swollen glands Neck: no pain, node enlargement/lumps, tyroid enlargement or tenderness Respiratory: SOB, cough, DOIMNGUEZ, wheezing, sputum, hemoptysis, pleuritic chest pain Cardiovascular: chest pain, leg edema, cyanosis, DOMINGUEZ, orthopnea Musculoskeletal: edema, deformities, pain Gastrointestinal: nausea, vomiting, hematemesis, diarrhea, constipation, melena, bright red blood in stools, fecal incontinence, jaundice Genitourinary/Reproductive: frequent urination, dysuria, hematuria, incontinence Neurogical: seizures, headaches, weakness, paresthesias, loss of speech or vision; memory loss, vertigo, tremors, numbness Psychiatric: stable mood; excessive anxiety, sadness or moodiness Past History Past Medical History: other (Asthma, brother with pulmonary embolism) Past Surgical History: No surgical history Social history: no significant social history Family history: no significant family history Medications and Allergies Allergies Allergy/AdvReac Type Severity Reaction Status Date / Time No Known Allergies Allergy Verified 06/29/20 23:49 Home Medications Medication Instructions Recorded Confirmed Last Taken Type Doxycycline Hyclate [Doxycycline 100 mg PO Q12HR 10 Days #20 tab 01/23/19 Unknown Rx Hyclate TAB] methylPREDNISolone [Medrol 4MG 4 mg PO DAILY 6 Days #1 tab.ds.pk 01/23/19 Unknown Rx DOSEPAK (21 tabs)] Active Meds: Active Medications Acetaminophen (Acetaminophen 325 Mg Tab) 650 mg PO Q6H PRN PRN Reason: Pain MILD(1-3)/Fever >100.5/LAKE Heparin Sodium/Sodium Chloride (Heparin/ 0.45% Nacl-25,000 Unit/500 Ml) 25,000 unit in 500 mls @ 30 mls/hr IV TITR [facility]; Protocol Last Admin: 06/30/20 02:55 Dose: 1,500 units/hr, 30 mls/hr Documented by: Ceftriaxone Sodium (Rocephin/Ns 2 Gm/100 Ml) 2 gm in 100 mls @ 200 mls/hr IV Q24H [facility]; Protocol Azithromycin (Zithromax/Ns) 500 mg in 250 mls @ 250 mls/hr IV Q24H [facility]; Protocol Magnesium Hydroxide (Magnesium Hydroxide (Mom) Oral Liqd Udc) 30 ml PO Q4H PRN PRN Reason: Constipation Morphine Sulfate (Morphine 2 Mg/1 Ml Inj) 2 mg IV Q4H PRN PRN Reason: Pain, Moderate (4-6) Ondansetron HCl (Ondansetron 4 Mg/2 Ml Inj) 4 mg IV Q8H PRN PRN Reason: Nausea And Vomiting Pantoprazole Sodium (Pantoprazole 40 Mg Inj) 40 mg IV QDAY CAREY Sodium Chloride (Sodium Chloride 0.9% 10 Ml Flush Syringe) 10 ml IV BID CAREY Sodium Chloride (Sodium Chloride 0.9% 10 Ml Flush Syringe) 10 ml IV PRN PRN PRN Reason: LINE FLUSH Physical Examination - Physical Exam Narrative exam: General appearance: Alert in NAD Eyes: anicteric sclerae, moist conjunctivae; no lid-lag; PERRLA HENT: Normocephalic, Atraumatic; normal external ears, nares open, oropharynx clear Neck: supple, tracheal midline, no JVD Lungs: Bilateral scattered crackles CV: RRR no murmur Abdomen: Soft, non-tender; obese Extremities: no edema, no cyanosis Skin: No rash. Psych: no agitated Neuro: alert and oriented x 3. Moving all extermities - Constitutional Vitals: Vital Signs Temp Pulse Resp BP Pulse Ox 98.5 F 97 H 19 127/68 99 06/30/20 02:10 06/30/20 05:30 06/30/20 05:30 06/30/20 05:30 06/30/20 05:30 Temperature -Last 24 Hours Temperature 98.5 F Temperature 101.4 F Results - Labs CBC & Chem 7: 06/30/20 00:01 06/30/20 00:01 Labs: Abnormal lab results 06/30/20 06/30/20 06/30/20 Range/Units 00:01 00:01 00:01 WBC 21.9 H (4.5-11.0) K/mm3 Seg Neuts % (Manual) 73.0 H (40.0-70.0) % Monocytes % (Manual) 13.0 H (0.0-7.3) % Seg Neutrophils # Man 16.0 H (1.8-7.7) K/mm3 Monocytes # (Manual) 2.8 H (0.0-0.8) K/mm3 PT 16.5 H (12.2-14.9) Sec. INR 1.35 H (0.87-1.13) D-Dimer 3794.72 H (0-234) ng/mlDDU Heparin Anti-Xa Level (0.3-0.7) U.I./ml VBG pH (7.320-7.420) Sodium 130 L (137-145) mmol/L Chloride 96.0 L (98-107) mmol/L Carbon Dioxide 20 L (22-30) mmol/L BUN 5 L (7-17) mg/dL Creatinine 0.5 L (0.6-1.2) mg/dL Glucose 162 H (65-100) mg/dL Ferritin (10.0-200.0) ng/mL Alkaline Phosphatase 130 H (35-129) units/L Lactate Dehydrogenase (91-180) units/L C-Reactive Protein (0.00-1.30) mg/dL Albumin 3.2 L (3.9-5) g/dL 06/30/20 06/30/20 06/30/20 Range/Units 00:01 00:04 00:04 WBC (4.5-11.0) K/mm3 Seg Neuts % (Manual) (40.0-70.0) % Monocytes % (Manual) (0.0-7.3) % Seg Neutrophils # Man (1.8-7.7) K/mm3 Monocytes # (Manual) (0.0-0.8) K/mm3 PT (12.2-14.9) Sec. INR (0.87-1.13) D-Dimer (0-234) ng/mlDDU Heparin Anti-Xa Level (0.3-0.7) U.I./ml VBG pH 7.439 H (7.320-7.420) Sodium (137-145) mmol/L Chloride (98-107) mmol/L Carbon Dioxide (22-30) mmol/L BUN (7-17) mg/dL Creatinine (0.6-1.2) mg/dL Glucose (65-100) mg/dL Ferritin 336.8 H (10.0-200.0) ng/mL Alkaline Phosphatase (35-129) units/L Lactate Dehydrogenase 318 H (91-180) units/L C-Reactive Protein 31.50 H (0.00-1.30) mg/dL Albumin (3.9-5) g/dL 06/30/20 Range/Units 10:09 WBC (4.5-11.0) K/mm3 Seg Neuts % (Manual) (40.0-70.0) % Monocytes % (Manual) (0.0-7.3) % Seg Neutrophils # Man (1.8-7.7) K/mm3 Monocytes # (Manual) (0.0-0.8) K/mm3 PT (12.2-14.9) Sec. INR (0.87-1.13) D-Dimer (0-234) ng/mlDDU Heparin Anti-Xa Level 0.16 L (0.3-0.7) U.I./ml VBG pH (7.320-7.420) Sodium (137-145) mmol/L Chloride (98-107) mmol/L Carbon Dioxide (22-30) mmol/L BUN (7-17) mg/dL Creatinine (0.6-1.2) mg/dL Glucose (65-100) mg/dL Ferritin (10.0-200.0) ng/mL Alkaline Phosphatase (35-129) units/L Lactate Dehydrogenase (91-180) units/L C-Reactive Protein (0.00-1.30) mg/dL Albumin (3.9-5) g/dL Assessment and Plan Cultures: SARS-CoV-2 PCR positive Assessment: 44-year-old male female with history of morbid obesity admitted on 06/30/2020 secondary to few days history of chest pain, back pain, shortness of breath and cough: #Severe sepsis: present on admission with fever, tachycardia, leukocytosis; source severe COVID-19 infection. Urinalysis negative. #Severe COVID-19 pneumonia: CTA with bilateral infiltrates and a prominent pu lmonary embolism. Inflammatory markers elevated. D-dimer 3794. Ferritin 336. CRP 21. Procalcitonin 0.2. Patient is not hypoxic, currently on room air. #Morbid obesity associated with worse outcomes Recommendations: -No indication for dexamethasone or remdesivir since patient is not hypoxic, currently on room air -Monitor inflammatory markers - ferritin, Ddimer, CRP, LDH -Continue anticoagulation per System Protocol to treat pulmonary embolism -Continue ceftriaxone and azithromycin, procalcitonin 0.2 ng/mL will repeat tomorrow -Follow-up blood cultures All laboratory, cultures and imaging were reviewed. Discussed with attending. Will follow Yanna Valencia MD Infectious Diseases Director Radiation Oncology [facility] M [phone]
--- NOTE | 2020-06-30 13:16 | Consultation ---
History of Present Illness Consult date: 06/30/20 Requesting physician: TANYA APONTE Reason for consult: pulmonary embolism History of present illness: PULMONARY/CCM CONSULT NOTE (Full dictation # [id number]) Please see dictated notes for full details - downgrade to remote telemetry Past History Past Medical History: other (Asthma, brother with pulmonary embolism) Past Surgical History: No surgical history Social history: no significant social history Family history: no significant family history Medications and Allergies Allergies Allergy/AdvReac Type Severity Reaction Status Date / Time No Known Allergies Allergy Verified 06/29/20 23:49 Home Medications Medication Instructions Recorded Confirmed Last Taken Type Doxycycline Hyclate [Doxycycline 100 mg PO Q12HR 10 Days #20 tab 01/23/19 06/30/20 Unknown Rx Hyclate TAB] methylPREDNISolone [Medrol 4MG 4 mg PO DAILY 6 Days #1 tab.ds.pk 01/23/19 Unknown Rx DOSEPAK (21 tabs)] Active Meds: Active Medications Acetaminophen (Acetaminophen 325 Mg Tab) 650 mg PO Q6H PRN PRN Reason: Pain MILD(1-3)/Fever >100.5/[place] Heparin Sodium/Sodium Chloride (Heparin/ 0.45% Nacl-25,000 Unit/500 Ml) 25,000 unit in 500 mls @ 30 mls/hr IV TITR CAREY; Protocol Last Admin: 06/30/20 02:55 Dose: 1,500 units/hr, 30 mls/hr Documented by: Ceftriaxone Sodium (Rocephin/Ns 2 Gm/100 Ml) 2 gm in 100 mls @ 200 mls/hr IV Q24H CAREY; Protocol Azithromycin (Zithromax/Ns) 500 mg in 250 mls @ 250 mls/hr IV Q24H CAREY; Protocol Magnesium Hydroxide (Magnesium Hydroxide (Mom) Oral Liqd Udc) 30 ml PO Q4H PRN PRN Reason: Constipation Morphine Sulfate (Morphine 2 Mg/1 Ml Inj) 2 mg IV Q4H PRN PRN Reason: Pain, Moderate (4-6) Ondansetron HCl (Ondansetron 4 Mg/2 Ml Inj) 4 mg IV Q8H PRN PRN Reason: Nausea And Vomiting Pantoprazole Sodium (Pantoprazole 40 Mg Inj) 40 mg IV QDAY CAREY Sodium Chloride (Sodium Chloride 0.9% 10 Ml Flush Syringe) 10 ml IV BID CAREY Sodium Chloride (Sodium Chloride 0.9% 10 Ml Flush Syringe) 10 ml IV PRN PRN PRN Reason: LINE FLUSH Physical Examination Vital signs: Vital Signs Temp Pulse Resp BP Pulse Ox 101.4 F H 125 H 18 147/91 94 06/29/20 23:32 06/29/20 23:32 06/29/20 23:32 06/29/20 23:32 06/29/20 23:32 Results - Laboratory Findings CBC and BMP: 06/30/20 00:01 06/30/20 00:01 PT/INR, D-dimer PT 16.5 Sec. (12.2-14.9) H 06/30/20 00:01 INR 1.35 (0.87-1.13) H 06/30/20 00:01 D-Dimer 3794.72 ng/mlDDU (0-234) H 06/30/20 00:01 Abnormal lab findings: Abnormal Labs 06/30/20 06/30/20 06/30/20 00:01 00:01 00:01 WBC 21.9 H Seg Neuts % (Manual) 73.0 H Monocytes % (Manual) 13.0 H Seg Neutrophils # Man 16.0 H Monocytes # (Manual) 2.8 H PT 16.5 H INR 1.35 H D-Dimer 3794.72 H Heparin Anti-Xa Level VBG pH Sodium 130 L Chloride 96.0 L Carbon Dioxide 20 L BUN 5 L Creatinine 0.5 L Glucose 162 H Ferritin Alkaline Phosphatase 130 H Lactate Dehydrogenase C-Reactive Protein Albumin 3.2 L 06/30/20 06/30/20 06/30/20 00:01 00:04 00:04 WBC Seg Neuts % (Manual) Monocytes % (Manual) Seg Neutrophils # Man Monocytes # (Manual) PT INR D-Dimer Heparin Anti-Xa Level VBG pH 7.439 H Sodium Chloride Carbon Dioxide BUN Creatinine Glucose Ferritin 336.8 H Alkaline Phosphatase Lactate Dehydrogenase 318 H C-Reactive Protein 31.50 H Albumin 06/30/20 10:09 WBC Seg Neuts % (Manual) Monocytes % (Manual) Seg Neutrophils # Man Monocytes # (Manual) PT INR D-Dimer Heparin Anti-Xa Level 0.16 L VBG pH Sodium Chloride Carbon Dioxide BUN Creatinine Glucose Ferritin Alkaline Phosphatase Lactate Dehydrogenase C-Reactive Protein Albumin
[2020-06-30] MEDS: PANTOPRAZOLE 40 MG INJ IV SCH (14:15)
[2020-06-30 16:15] LABS: Hematocrit 35.2 % (30.3-42.9); Mean Corpuscular HGB Conc 34 % (30-34); Mean Corpuscular Volume 91 fl (79-97); Platelet Count 366 K/mm3 (140-440); Red Blood Count 3.85 M/mm3 (3.65-5.03); Red Cell Distribution Width 13.3 % (13.2-15.2)
[2020-06-30 16:32] LABS: INR 1.29 (0.87-1.13)
[2020-06-30 16:33] LABS: Partial Thromboplastin Time 47.3 Sec. (24.2-36.6)
[2020-06-30] MEDS: ZINC SULFATE 220 MG CAP PO SCH (22:09)
[2020-06-30] MEDS: APIXABAN 5 MG TAB PO SCH (22:09)
[2020-06-30] MEDS: ASCORBIC ACID 500 MG TAB PO SCH (22:09)
[2020-07-01] MEDS: cefTRIAXone/NS 2 GM/100 ML 2 GM/100 ML BAG IV SCH (00:30)
[2020-07-01] MEDS: AZITHROMYCIN/NS 500 MG/250 ML 500 MG/250 ML BAG IV SCH (00:41)
--- NOTE | 2020-07-01 03:45 | Consultation ---
DATE OF CONSULTATION: 06/30/2020 CONSULTING PHYSICIAN: Dr. Lagunas. REASON FOR CONSULTATION: Acute pulmonary embolism. HISTORY OF PRESENT ILLNESS: The patient is a 44-year-old obese female with a past medical history significant according to only for asthma who came into the emergency room complaining about 3-4 days of right-sided chest pain below the right breast, is also complaining of right upper back pain. She gives about a 5/10 in severity, with 10 being the highest level of the pain. She had seen her primary care physician and was given antibiotics, doxycycline and meloxicam for pain without significant improvement. She denied any known contacts with anyone with COVID-19 infection. In the emergency room, she was tachycardic, tachypneic and she had a fever of 101.5. She also was found to have leukocytosis of 21,900. A CT angiogram of the chest revealed pulmonary emboli, right-sided pulmonary emboli and patchy infiltrates, typical of COVID-19 infection. We are asked to assist with management. When I stopped by to see her, she was resting in bed. The pain was a little bit better, but still present. She denied any gross or streaky hemoptysis. She was on room air and saturating well. She denied any other bleeding diathesis. When asked about tobacco abuse history, she denied any and she also denied any lower extremity swelling either unilaterally or bilaterally. She also denied recent long distance travel and really is as much of the history of presentation as I have. PAST MEDICAL HISTORY: Asthma, obesity. PAST SURGICAL HISTORY: Denies. MEDICATIONS: She was on at the time I stopped by to see according to the medication administration record included the following: She was on Tylenol 650 mg p.o. q.6 hours p.r.n. mild pain or fevers, Eliquis 10 mg p.o. q.12h. scheduled with a tapering dose, azithromycin 500 mg IV daily, Rocephin 2 grams IV daily, morphine sulfate 2 mg IV q.4 hours p.r.n. moderate pain, Zofran 4 mg IV q.8 hours p.r.n. for nausea and vomiting, and Protonix 40 mg IV daily. ALLERGIES: No known drug allergies. DIET: Obese lady, denies acute weight loss or gain in the preceding few weeks to months. SOCIAL HISTORY: Lives in the community. Denies alcohol, tobacco or illicit drug use or abuse. FAMILY HISTORY: Otherwise, noncontributory. REVIEW OF SYSTEMS: No loss of consciousness. No new onset seizures. No new onset focal weakness. No gross hematochezia or melena, no gross hematuria or dysuria. She had chest pain. She had shortness of breath, dyspnea on exertion. Denies polydipsia, polyuria. Denies heat or cold intolerance. Complete 13 system review of system was obtained. Pertinent positives and/or negatives as in body of history above, otherwise they are noncontributory. PHYSICAL EXAMINATION: VITAL SIGNS: At presentation, she had a fever of 101.4 degrees Fahrenheit, pulse of 125, respiratory rate of 18, blood pressure 147/91, O2 sats were 94%; inspired oxygen concentration at that time was not recorded. When I stopped by to see her, her O2 sats were 98% on room air. GENERAL: She is middle aged morbidly obese female. Normocephalic, atraumatic, talking to me in full sentences without significantly increased respiratory effort at rest. HEENT: Anicteric. No conjunctival erythema. Oropharynx was moist. Mallampati 3 oropharynx. No gross jugular venous distention, no thyromegaly. She does have a large neck circumference. Grossly, there were no palpable lymph nodes in the supraclavicular or submandibular lymph node chains. LUNGS: Auscultation of both lungs arguelles significant only for distant breath sounds are present, likely due to soft tissue. No rales. Slightly diminished right lower lobe air entry. HEART: Sounds 1 and 2 are heard at the time of my evaluation, regular rate and rhythm without overt rubs or murmurs. ABDOMEN: Soft, full, protuberant. Bowel sounds are positive, nontender, no palpable hepatosplenomegaly. EXTREMITIES: Without overt digital clubbing or cyanosis, no pedal edema. Pedal pulses are 2+ bilaterally. NEUROLOGIC: Pupils are equal, round, about 4 mm, reactive to light. Extraocular muscle movements are intact. She moves all 4 extremities spontaneously. SKIN: Normal turgor in the areas examined without overt cellulitis or rash. Please see the wound care nurses' notes for full description of her skin/registered nurse's notes. Mood was normal. Affect was appropriate. She had intact judgment and insight. LABORATORY DATA: From my review as follows: White cell count 21,900, hemoglobin 12.5, hematocrit 37.0, platelet count 375. No band forms on the manual differential. INR was 1.35. D-dimer 3794. A venous blood gas showed a pH of 7.44. Serum sodium was 130, potassium 4.0, chloride 96, bicarbonate 20, BUN 5, creatinine 0.5, glucose 162. Lactic acid within normal limits. Ferritin slightly elevated at 337. Lactic dehydrogenase 318, slightly elevated. CRP is elevated at 31.5. Procalcitonin within normal limits. Urinalysis is negative for nitrites and leukocyte esterase and unremarkable. Coronavirus PCRs have come back positive. Two sets of blood cultures, no growth to date. A chest x-ray has been reviewed, it shows likely right lower lobe infiltrate. I cannot rule out small bilateral pleural effusions, but could be soft tissue shadows. No gross pneumothorax, no gross bony fracture. A CT angiogram was also done. I have been able to review the films very poor contrast phase timing, but definitely I do see significant pulmonary emboli in the right lower lobe branches, in particular of the pulmonary artery. Also, there is a right lower lobe infiltrate as well as there is motion artifact. The patchy infiltrates in both lungs definitely are consistent with COVID pneumonia and appears to be some fluid in the major fissure on the right. ASSESSMENT: 1. Acute pulmonary embolus. 2. Chest pain. 3. Fevers. 4. Bilateral multifocal pneumonia. 5. Possible post-embolic infarction. 6. Coronavirus-19 infection. 7. Morbid obesity. 8. Leukocytosis. 9. Elevated serum inflammatory markers to include D-dimers, LDH and ferritin levels. 10. Hyponatremia. 11. Mild metabolic acidosis. PLAN: We will keep her in airborne and contact isolation for COVID-19 infection. I will start him empirically on vitamin C and zinc. There will be consideration for systemic steroids. Infectious disease consultation will be placed. She should be a candidate for remdesivir therapy. COVID test will be repeated down the road per protocol. We will trend inflammatory markers to help guide clinical decision maker making she is on full anticoagulation for the venous thromboembolic disease. Oxygen will be offered as necessary to keep sats greater than or equal to about 92%. She would benefit certainly from a sleep study to evaluate for obstructive sleep apnea or other sleep-disordered breathing or even obesity hypoventilation syndrome. I will get an EKG just to evaluate for any evidence of chronic CO2 retention and that should be an ABG. I will get an ABG. Analgesia will be important to prevent splinting and farther pulmonary atelectasis/desaturation. Consideration will be given for noninvasive ventilation empirically. I do agree with community-acquired pneumonia therapy empirically, 5 days of treatment should be appropriate. She is appropriately on GI prophylaxis. She is fully anticoagulated. Flu and pneumonia vaccination will be addressed per protocol. She is doing much better. She is stable, she can be transferred to the medical floor with remote telemetry. Thank you very much for the consult. We will follow along and make further recommendations as picture progresses/becomes clearer. TID: [id number] RECEIPT: [id number] GABBIE CABRERA
[2020-07-01 07:53] LABS: Hematocrit 32.8 % (30.3-42.9); Hemoglobin 11.2 gm/dl (10.1-14.3); Mean Corpuscular HGB Conc 34 % (30-34); Mean Corpuscular Volume 91 fl (79-97); Platelet Count 381 K/mm3 (140-440); Red Blood Count 3.61 M/mm3 (3.65-5.03); Red Cell Distribution Width 13.5 % (13.2-15.2)
[2020-07-01 08:04] LABS: INR 1.51 (0.87-1.13)
[2020-07-01 08:10] LABS: Blood Urea Nitrogen 6 mg/dL (7-17); Calcium 8.5 mg/dL (8.4-10.2); Hemolysis Index 0
[2020-07-01 08:35] LABS: BUN/Creatinine Ratio 15
[2020-07-01 08:36] LABS: Platelet Estimate Consistent w Auto; RBC Morphology Normal; Total Cells Counted 100
[2020-07-01] MEDS: APIXABAN 5 MG TAB PO SCH ×2 (10:02→21:01)
[2020-07-01] MEDS: ASCORBIC ACID 500 MG TAB PO SCH ×2 (10:02→21:02)
[2020-07-01] MEDS: ZINC SULFATE 220 MG CAP PO SCH ×2 (10:03→21:02)
[2020-07-01] MEDS: PANTOPRAZOLE 40 MG INJ IV SCH (10:03)
[2020-07-01] MEDS: amLODIPine 5 MG TAB PO SCH (10:28)
--- NOTE | 2020-07-01 12:28 | Progress Note ---
Assessment and Plan -- Pneumonia Likely due to COVID-19 Patient placed on empiric IV antibiotics due to elevated procalcitonin. We will await culture results. --SIRS, likely due to pulmonary infraction cont to trend white count -- Pulmonary embolism Patient was started on anticoagulation with heparin drip for now transition to Eliquis. -- Pulmonary infarction Secondary to the pulmonary embolus. We will keep oxygen saturation greater equal to 94%. Vascular surgery also consulted -recommended to continue medical management. --COVID-19 infection Patient placed on isolation precautions. cont COVID 19 protocol -- DVT prophylaxis Patient currently on anticoagulation. -- Full code status Daily clinical course: 07/01/20: Positive for COVID but patient saturating good at RA. changed heparin drip to eliquis. cont empiric abx, still has elevated white count >20K. follow clinically. assess o2 sat on ambulation. repeat inflammatory markers tomorrow. if clinically remains stable - possible d/c tomorrow Subjective Date of service: 07/01/20 Interval history: Patient seen and examined. Medical records and medication list reviewed. No acute event overnight noted by the RN. Patient denies any chest pain or difficulty breathing. Patient is tolerating diet. Patient resting on room air, white count still elevated above 20K Discussed plan of care at bedside with patient. Objective - Exam Narrative Exam: Limited physical exam due to COVID-19 pandemic to minimize transmission of the disease and to preserve PPE. Vital reviewed and stable. GENERAL: well-developed morbidly obese -[place] female lying on bed appeared to be in no discomfort. HEENT: Normocephalic. Atraumatic. NECK: Supple. CHEST/LUNGS: breathing nonlabored. HEART/CARDIOVASCULAR: Heart rate stable on telemetry ABDOMEN: Visibly not distended SKIN: There is no rash NEURO: No focal motor deficit. Follows command. MUSCULOSKELETAL: No joint effusion EXTRIMITY: No swelling, no cyanosis or clubbing. PSYCH: Cooperative. - Constitutional Vitals: Vital Signs - 12hr 07/01/20 07/01/20 07/01/20 04:30 08:18 10:00 Temperature 98.7 F Pulse Rate Respiratory 16 18 18 Rate Blood Pressure 148/91 O2 Sat by Pulse 100 Oximetry 07/01/20 10:28 Temperature Pulse Rate 90 Respiratory Rate Blood Pressure 155/83 O2 Sat by Pulse Oximetry - Labs CBC & Chem 7: 05/15/21 06:50 07/01/20 06:53 Labs: Abnormal lab results 06/29/20 06/30/20 06/30/20 Range/Units Unknown 16:02 16:02 WBC 26.5 H (4.5-11.0) K/mm3 RBC (3.65-5.03) M/mm3 Seg Neuts % (Manual) (40.0-70.0) % Lymphocytes % (Manual) (13.4-35.0) % Seg Neutrophils # Man (1.8-7.7) K/mm3 Monocytes # (Manual) (0.0-0.8) K/mm3 PT 16.1 H (12.2-14.9) Sec. INR 1.29 H (0.87-1.13) APTT 47.3 H (24.2-36.6) Sec. Heparin Anti-Xa Level (0.3-0.7) U.I./ml BUN (7-17) mg/dL Creatinine (0.6-1.2) mg/dL Glucose (65-100) mg/dL Coronavirus (PCR) Positive A (Negative) 06/30/20 06/30/20 07/01/20 Range/Units 16:02 19:40 06:53 WBC 25.8 H (4.5-11.0) K/mm3 RBC 3.61 L (3.65-5.03) M/mm3 Seg Neuts % (Manual) 88.0 H (40.0-70.0) % Lymphocytes % (Manual) 7.0 L (13.4-35.0) % Seg Neutrophils # Man 22.7 H (1.8-7.7) K/mm3 Monocytes # (Manual) 1.3 H (0.0-0.8) K/mm3 PT (12.2-14.9) Sec. INR (0.87-1.13) APTT (24.2-36.6) Sec. Heparin Anti-Xa Level 0.11 L (0.3-0.7) U.I./ml BUN (7-17) mg/dL Creatinine 0.3 L (0.6-1.2) mg/dL Glucose (65-100) mg/dL Coronavirus (PCR) (Negative) 07/01/20 07/01/20 Range/Units 06:53 06:53 WBC (4.5-11.0) K/mm3 RBC (3.65-5.03) M/mm3 Seg Neuts % (Manual) (40.0-70.0) % Lymphocytes % (Manual) (13.4-35.0) % Seg Neutrophils # Man (1.8-7.7) K/mm3 Monocytes # (Manual) (0.0-0.8) K/mm3 PT 18.2 H (12.2-14.9) Sec. INR 1.51 H (0.87-1.13) APTT (24.2-36.6) Sec. Heparin Anti-Xa Level (0.3-0.7) U.I./ml BUN 6 L (7-17) mg/dL Creatinine 0.4 L (0.6-1.2) mg/dL Glucose 141 H (65-100) mg/dL Coronavirus (PCR) (Negative)
--- NOTE | 2020-07-01 13:45 | Progress Note ---
Assessment and Plan Cultures: SARS-CoV-2 PCR positive Blood cultures no growth today Urine culture negative Assessment: 44-year-old male female with history of morbid obesity admitted on 06/30/2020 secondary to few days history of chest pain, back pain, shortness of breath and cough: #Severe sepsis: Remains with leukocytosis; source severe COVID-19 infection with PE and prominent lung infarct. Urinalysis negative. #Severe COVID-19 pneumonia: CTA with bilateral infiltrates and a prominent pulmonary embolism. Inflammatory markers elevated. D-dimer 3794. Ferritin 336. CRP 21. Procalcitonin 0.2. Patient is not hypoxic, currently on room air. #PE with prominent lung infarct #Morbid obesity associated with worse outcomes Recommendations: -Leukocytosis likely reactive due to prominent lung infarct, no obvious bacterial infection -Repeat procalcitonin -Monitor leukocytosis -No indication for dexamethasone or remdesivir since patient is not hypoxic, currently on room air -Monitor inflammatory markers - ferritin, Ddimer, CRP, LDH, ordered -Continue anticoagulation per System Protocol to treat pulmonary embolism -Continue ceftriaxone and azithromycin D2 of 5 -Follow-up blood cultures All laboratory, cultures and imaging were reviewed. Discussed with attending. Will follow Yanna Valencia MD Infectious Diseases Floor Install[employer] [facility] M [phone] O [phone] Subjective Date of service: 07/01/20 Principal diagnosis: COVID-19/PE Interval history: Feels better, on room air, no desaturation, no fever. Objective - Exam Narrative Exam: General appearance: Alert in NAD obese Eyes: anicteric sclerae, moist conjunctivae; no lid-lag; PERRLA HENT: Normocephalic, Atraumatic; normal external ears, nares open, oropharynx clear Neck: supple, tracheal midline, no JVD Lungs: Bilateral scattered crackles CV: RRR no murmur Abdomen: Soft, non-tender; obese Extremities: no edema, no cyanosis Skin: No rash. Psych: no agitated Neuro: alert and oriented x 3. Moving all extermities - Constitutional Vitals: Vital Signs Temp Pulse Resp BP Pulse Ox 98.5 F 90 18 155/83 99 07/01/20 11:00 07/01/20 10:28 07/01/20 10:25 07/01/20 10:28 07/01/20 10:25 Temperature -Last 24 Hours Temperature 98.5 F Temperature 98.7 F Temperature 98.8 F Temperature 98.7 F - Labs CBC & Chem 7: 07/01/20 06:53 07/01/20 06:53 Labs: Abnormal lab results 06/29/20 06/30/20 06/30/20 Range/Units Unknown 16:02 16:02 WBC 26.5 H (4.5-11.0) K/mm3 RBC (3.65-5.03) M/mm3 Seg Neuts % (Manual) (40.0-70.0) % Lymphocytes % (Manual) (13.4-35.0) % Seg Neutrophils # Man (1.8-7.7) K/mm3 Monocytes # (Manual) (0.0-0.8) K/mm3 PT 16.1 H (12.2-14.9) Sec. INR 1.29 H (0.87-1.13) APTT 47.3 H (24.2-36.6) Sec. Heparin Anti-Xa Level (0.3-0.7) U.I./ml BUN (7-17) mg/dL Creatinine (0.6-1.2) mg/dL Glucose (65-100) mg/dL Coronavirus (PCR) Positive A (Negative) 06/30/20 06/30/20 07/01/20 Range/Units 16:02 19:40 06:53 WBC 25.8 H (4.5-11.0) K/mm3 RBC 3.61 L (3.65-5.03) M/mm3 Seg Neuts % (Manual) 88.0 H (40.0-70.0) % Lymphocytes % (Manual) 7.0 L (13.4-35.0) % Seg Neutrophils # Man 22.7 H (1.8-7.7) K/mm3 Monocytes # (Manual) 1.3 H (0.0-0.8) K/mm3 PT (12.2-14.9) Sec. INR (0.87-1.13) APTT (24.2-36.6) Sec. Heparin Anti-Xa Level 0.11 L (0.3-0.7) U.I./ml BUN (7-17) mg/dL Creatinine 0.3 L (0.6-1.2) mg/dL Glucose (65-100) mg/dL Coronavirus (PCR) (Negative) 07/01/20 07/01/20 Range/Units 06:53 06:53 WBC (4.5-11.0) K/mm3 RBC (3.65-5.03) M/mm3 Seg Neuts % (Manual) (40.0-70.0) % Lymphocytes % (Manual) (13.4-35.0) % Seg Neutrophils # Man (1.8-7.7) K/mm3 Monocytes # (Manual) (0.0-0.8) K/mm3 PT 18.2 H (12.2-14.9) Sec. INR 1.51 H (0.87-1.13) APTT (24.2-36.6) Sec. Heparin Anti-Xa Level (0.3-0.7) U.I./ml BUN 6 L (7-17) mg/dL Creatinine 0.4 L (0.6-1.2) mg/dL Glucose 141 H (65-100) mg/dL Coronavirus (PCR) (Negative)
[2020-07-02] MEDS: cefTRIAXone/NS 2 GM/100 ML 2 GM/100 ML BAG IV SCH (00:27)
[2020-07-02] MEDS: AZITHROMYCIN/NS 500 MG/250 ML 500 MG/250 ML BAG IV SCH (00:28)
[2020-07-02 07:46] LABS: Hematocrit 30.8 % (30.3-42.9); Hemoglobin 10.3 gm/dl (10.1-14.3); Mean Corpuscular HGB Conc 34 % (30-34); Mean Corpuscular Volume 90 fl (79-97); Platelet Count 383 K/mm3 (140-440); Red Blood Count 3.43 M/mm3 (3.65-5.03); Red Cell Distribution Width 13.7 % (13.2-15.2)
[2020-07-02] MEDS ORDERED: PANTOPRAZOLE 40 MG TAB PO SCH (09:00)
[2020-07-02] MEDS: amLODIPine 5 MG TAB PO SCH (09:08)
[2020-07-02] MEDS: ZINC SULFATE 220 MG CAP PO SCH (09:09)
[2020-07-02] MEDS: APIXABAN 5 MG TAB PO SCH (09:09)
[2020-07-02] MEDS: ASCORBIC ACID 500 MG TAB PO SCH (09:09)
[2020-07-02 09:10] VITALS: BP 166/88
[2020-07-02] MEDS ORDERED: amLODIPine 5 MG TAB PO SCH (09:25)
[2020-07-02] MEDS ORDERED: amLODIPine 5 MG TAB PO ONE (10:00)
[2020-07-02] MEDS ORDERED: guaiFENesin ER 600 MG TAB PO SCH (10:00)
[2020-07-02] MEDS ORDERED: amLODIPine 10 MG TAB PO SCH (10:00)
[2020-07-02 11:02] LABS: C-Reactive Protein 23.5 mg/dL (0.00-1.30)
--- NOTE | 2020-07-02 13:28 | Progress Note ---
Assessment and Plan Acute pulmonary embolus. Chest pain. Fevers. Bilateral multifocal pneumonia. Possible post-embolic infarction. Coronavirus-19 infection. Morbid obesity. Leukocytosis. Elevated serum inflammatory markers to include D-dimers, LDH and ferritin levels. Hyponatremia. Mild metabolic acidosis - continue to wean supplemental oxygen to keep O2 sats > 90% - bronchodilators (KAMALA) with pulm hygiene per RT - avoid nephrotoxins, renally dose all medications - mobility protocols to prevent pressure ulcers - PT/OT as tolerated - Wound care per RN/WCT - accuchecks with glycemic control per SSI for target blood glucose < 180 mg/dL - tobacco abstinence strongly counseled at the bedside - home oxygen evaluation at discharge - prn analgesia per pain score - GI & VTE prophylaxis - Flu & pneumovax per protocol - Pulmonary out patient follow up for PFTs and optimization of respiratory status - continue other care per attending / other consultants COVID SPECIFIC INTERVENTIONS: - Remdesivir as per ID/Pulmonary developed protocols (Not a candidate) - continue systemic steroids for severe COVID-19 infection empirically (Not a candidate) - follow repeat COVID tests results - zinc and vitamin C supplementation - Monitor inflammatory markers per facility protocol - ferritin, Ddimer, CRP - therapeutic anticoagulation per system Protocol based on d-dimer and clinical considerations (full anticoagulation re: VTE) - Continue contact and airborne isolation ... re-evaluate in am & prn Subjective Date of service: 07/01/20 Principal diagnosis: Acute P.E.; Chest pain; Pneumonia; COVID-19; Morbid obesit y; Metabolic acid Interval history: Patient is seen today for: Acute P.E.; Chest pain; Multifocal pneumonia; COVID- 19 infection; Morbid obesity; Mild metabolic acidosis. Seen and examined at bedside; 24hour events reviewed; nursing and respiratory care staff consulted; no adverse overnight events reported to me; resting peacefully in bed; denies gross hemoptysis; No N/V/F/C Objective Vital Signs - 12hr 07/01/20 07/01/20 07/01/20 04:30 08:18 10:00 Temperature 98.7 F Pulse Rate Respiratory 16 18 18 Rate Blood Pressure 148/91 O2 Sat by Pulse 100 Oximetry 07/01/20 07/01/20 07/01/20 10:25 10:28 11:00 Temperature 98.5 F Pulse Rate 90 90 Respiratory 18 Rate Blood Pressure 155/83 155/83 O2 Sat by Pulse 99 Oximetry 07/01/20 13:42 Temperature Pulse Rate 94 H Respiratory 18 Rate Blood Pressure 133/71 O2 Sat by Pulse 99 Oximetry Constitutional: no acute distress Eyes: non-icteric ENT: oropharynx moist Neck: supple, no lymphadenopathy, no JVD, other (large circumference) Effort: mildly labored Ascultation: Bilateral: rales (base) Percussion: Bilateral: not dull Cardiovascular: regular rate and rhythm Gastrointestinal: normoactive bowel sounds, soft, non-tender, non-distended (protuberant) Integumentary: normal Extremities: no cyanosis, no edema, pulses normal, no ischemia or petechiae Neurologic: non-focal exam, pupils equal and round, CN II-XII normal, motor strength normal and Psychiatric: mood appropriate, affect normal CBC and BMP: 07/02/20 06:50 07/01/20 06:53 ABG, PT/INR, D-dimer: PT/INR, D-dimer PT 18.2 Sec. (12.2-14.9) H 07/01/20 06:53 INR 1.51 (0.87-1.13) H 07/01/20 06:53 D-Dimer 3794.72 ng/mlDDU (0-234) H 06/30/20 00:01 Abnormal lab findings: Abnormal Labs 06/29/20 06/30/20 06/30/20 Unknown 00:01 00:01 WBC 21.9 H RBC Seg Neuts % (Manual) 73.0 H Lymphocytes % (Manual) Monocytes % (Manual) 13.0 H Seg Neutrophils # Man 16.0 H Monocytes # (Manual) 2.8 H PT 16.5 H INR 1.35 H APTT D-Dimer 3794.72 H Heparin Anti-Xa Level VBG pH Sodium Chloride Carbon Dioxide BUN Creatinine Glucose Ferritin Alkaline Phosphatase Lactate Dehydrogenase C-Reactive Protein Albumin Coronavirus (PCR) Positive A 06/30/20 06/30/20 06/30/20 00:01 00:01 00:04 WBC RBC Seg Neuts % (Manual) Lymphocytes % (Manual) Monocytes % (Manual) Seg Neutrophils # Man Monocytes # (Manual) PT INR APTT D-Dimer Heparin Anti-Xa Level VBG pH 7.439 H Sodium 130 L Chloride 96.0 L Carbon Dioxide 20 L BUN 5 L Creatinine 0.5 L Glucose 162 H Ferritin Alkaline Phosphatase 130 H Lactate Dehydrogenase 318 H C-Reactive Protein 31.50 H Albumin 3.2 L Coronavirus (PCR) 06/30/20 06/30/20 06/30/20 00:04 10:09 16:02 WBC 26.5 H RBC Seg Neuts % (Manual) Lymphocytes % (Manual) Monocytes % (Manual) Seg Neutrophils # Man Monocytes # (Manual) PT INR APTT D-Dimer Heparin Anti-Xa Level 0.16 L VBG pH Sodium Chloride Carbon Dioxide BUN Creatinine Glucose Ferritin 336.8 H Alkaline Phosphatase Lactate Dehydrogenase C-Reactive Protein Albumin Coronavirus (PCR) 06/30/20 06/30/20 06/30/20 16:02 16:02 19:40 WBC RBC Seg Neuts % (Manual) Lymphocytes % (Manual) Monocytes % (Manual) Seg Neutrophils # Man Monocytes # (Manual) PT 16.1 H INR 1.29 H APTT 47.3 H D-Dimer Heparin Anti-Xa Level 0.11 L VBG pH Sodium Chloride Carbon Dioxide BUN Creatinine 0.3 L Glucose Ferritin Alkaline Phosphatase Lactate Dehydrogenase C-Reactive Protein Albumin Coronavirus (PCR) 07/01/20 07/01/20 07/01/20 06:53 06:53 06:53 WBC 25.8 H RBC 3.61 L Seg Neuts % (Manual) 88.0 H Lymphocytes % (Manual) 7.0 L Monocytes % (Manual) Seg Neutrophils # Man 22.7 H Monocytes # (Manual) 1.3 H PT 18.2 H INR 1.51 H APTT D-Dimer Heparin Anti-Xa Level VBG pH Sodium Chloride Carbon Dioxide BUN 6 L Creatinine 0.4 L Glucose 141 H Ferritin Alkaline Phosphatase Lactate Dehydrogenase C-Reactive Protein Albumin Coronavirus (PCR) Allied health notes reviewed: nursing
--- NOTE | 2020-07-02 14:03 | Discharge Summary ---
Providers - Providers Date of Admission: 06/30/20 02:28 Date of discharge: 07/02/20 Attending physician: CAITLYN DÍAZ 06/30/20 03:06 Consult to Physician [CONS] Routine Comment: Dr. Maier spoke with Dr. Louie @ [id number] Consulting Provider: YADIRA LOUIE Physician Instructions: Reason For Exam: PE 06/30/20 03:28 Consult to Dietitian/Nutrition [CONS] Routine Physician Instructions: Reason For Exam: Reason for Consult: Diet education 06/30/20 03:32 Consult to Physician [CONS] Routine Comment: Spoke with A.S.@ [phone] Consulting Provider: JORDAN GAMBLE Physician Instructions: Reason For Exam: Pulmonary Embolism 06/30/20 05:29 Consult to Physician [CONS] Routine Comment: Consulting Provider: JOHN LUJAN Physician Instructions: Reason For Exam: Pneumonia, R/O covid-19 Primary care physician: AEROSPACE TECHNICIAN Hospitalization Condition: Critical Pertinent studies: Chest x-ray, CTA chest Hospital course: 44-year-old -[place] female presented to the emergency room complaining of chest pain, back pain and shortness of breath which started few days ago. She also had some low-grade fever and cough. She had gone to her primary care physician yesterday and was given doxycycline and meloxicam but has not had any significant improvement. Upon arrival in the emergency room patient was quite tachycardic and tachypneic. She had a fever of 101.4 F. labs revealed leukocytosis of 21.9, she had an hyponatremia of 130. Chest x-ray reveals suspected left basilar effusion with associated consolidation and stable marked cardiomegaly. CT angiogram showed right lower lobe pulmonary embolus with prominent associated impact. Patchy infiltrates typical of COVID-19 infection, mildly prominent right axilla region nodes may be reactive. Patient was admitted with pneumonia with possible Covid, pulmonary embolus with infarction. She was placed on heparin drip, admitted to [facility]. Covid test was positive, but patient maintained oxygen saturation without any supplemental O2. Her heparin drip was then switched to Eliquis. Vascular surgeon was consulted and recom mended medical management. ID was consulted and recommended no additional treatment for COVID-19 as patient was asymptomatic. She was treated with empiric antibiotics as her procalcitonin was slightly elevated. Her inflammatory markers were followed. She was assessed for home O2 requirement. Patient also noted to have elevated blood pressure, patient was started on metoprolol and Norvasc. Patient was then discharged home in stable condition with outpatient follow-up discharge plan and management was thoroughly discussed with the patient and she was in agreement Disposition: DC-01 TO HOME OR SELFCARE Final Discharge Diagnosis (Prints w/discharge instructions): --COVID 19 PNA. --SIRS, likely due to pulmonary infraction. -- Pulmonary embolism. -- Pulmonary infarction. --Morbid obesity. --HTN Time spent for discharge: 34 minutes Core Measure Documentation - Palliative Care Palliative Care/ Comfort Measures: Not Applicable - Core Measures Any of the following diagnoses?: none Exam - Physical Exam Narrative exam: Limited physical exam due to COVID-19 pandemic to minimize transmission of the disease and to preserve PPE. Vital reviewed and stable. GENERAL: well-developed morbidly obese -[place] female lying on bed appeared to be in no discomfort. HEENT: Normocephalic. Atraumatic. NECK: Supple. CHEST/LUNGS: breathing nonlabored. HEART/CARDIOVASCULAR: Heart rate stable on telemetry ABDOMEN: Visibly not distended SKIN: There is no rash NEURO: No focal motor deficit. Follows command. MUSCULOSKELETAL: No joint effusion EXTRIMITY: No swelling, no cyanosis or clubbing. PSYCH: Cooperative. - Constitutional Vitals: Temp Pulse Resp BP Pulse Ox 98.5 F 91 H 20 166/88 99 07/02/20 09:13 07/02/20 09:13 07/02/20 09:13 07/02/20 09:13 07/02/20 09:13 Plan Activity: advance as tolerated Weight Bearing Status: Weight Bear as Tolerated Diet: low fat, low salt Follow up with: PRIMARY CAREMD [Primary Care Provider] - 3-5 Days BAILEY LONDONO MD [Staff Physician] - 7 Days Prescriptions: amLODIPine 10 mg PO DAILY #30 tablet Apixaban [Eliquis] 5 mg PO Q12HR #60 tablet levoFLOXacin [Levaquin] 750 mg PO QDAY #2 tablet Metoprolol [Lopressor TAB] 25 mg PO BID #60 tablet guaiFENesin ER [Mucinex ER] 600 mg PO BID #10 tablet Albuterol Mdi (or & Nicu Only) [ProAir HFA Inhaler] 2 puff IH QID PRN #8.5 gram PRN Reason: Shortness Of Breath Pantoprazole [Protonix TAB] 40 mg PO QDAC #30 tablet Ascorbic Acid [Vitamin C] 500 mg PO BID #10 tablet Zinc Sulfate 220 mg PO BID #10 capsule
--- NOTE | 2020-07-02 14:53 | Progress Note ---
Assessment and Plan -- Pneumonia Likely due to COVID-19 Patient placed on empiric IV antibiotics due to elevated procalcitonin. We will await culture results. --SIRS, likely due to pulmonary infraction cont to trend white count -- Pulmonary embolism Patient was started on anticoagulation with heparin drip for now transition to Eliquis. -- Pulmonary infarction Secondary to the pulmonary embolus. We will keep oxygen saturation greater equal to 94%. Vascular surgery also consulted -recommended to continue medical management. --COVID-19 infection Patient placed on isolation precautions. cont COVID 19 protocol -- DVT prophylaxis Patient currently on anticoagulation. -- Full code status Daily clinical course: 07/01/20: Positive for COVID but patient saturating good at RA. changed heparin drip to eliquis. cont empiric abx, still has elevated white count >20K. follow clinically. assess o2 sat on ambulation. repeat inflammatory markers tomorrow. if clinically remains stable - possible d/c tomorrow 07/02/20: O2 sat drops to 88% on ambulation, will start on dexamethasone, remdesivir - wait for ID recommendation Subjective Date of service: 07/02/20 Principal diagnosis: Acute P.E.; Chest pain; Pneumonia; COVID-19; Morbid obesity; Metabolic acid Objective - Constitutional Vitals: Vital Signs - 12hr 07/02/20 07/02/20 07/02/20 04:05 08:48 09:08 Temperature 98.6 F Pulse Rate 88 91 H Respiratory 16 Rate Blood Pressure 127/79 166/88 Blood Pressure [Right] O2 Sat by Pulse 100 100 Oximetry 07/02/20 09:13 Temperature 98.5 F Pulse Rate 91 H Respiratory 20 Rate Blood Pressure Blood Pressure 166/88 [Right] O2 Sat by Pulse 99 Oximetry - Labs CBC & Chem 7: 07/02/20 06:50 07/01/20 06:53 Labs: Abnormal lab results 07/02/20 07/02/20 07/02/20 Range/Units 06:50 10:12 10:12 WBC 18.6 H (4.5-11.0) K/mm3 RBC 3.43 L (3.65-5.03) M/mm3 D-Dimer 3755.17 H (0-234) ng/mlDDU Ferritin 609.1 H (10.0-200.0) ng/mL Lactate Dehydrogenase (91-180) units/L C-Reactive Protein (0.00-1.30) mg/dL 07/02/20 Range/Units 10:12 WBC (4.5-11.0) K/mm3 RBC (3.65-5.03) M/mm3 D-Dimer (0-234) ng/mlDDU Ferritin (10.0-200.0) ng/mL Lactate Dehydrogenase 274 H (91-180) units/L C-Reactive Protein 23.50 H (0.00-1.30) mg/dL
[2020-07-02] MEDS ORDERED: METOPROLOL TARTRATE 25 MG TAB PO SCH (15:00)
[2020-07-02] MEDS ORDERED: DEXAMETHASONE 4 MG TAB PO SCH (16:00)
[2020-07-02 16:08] LABS: Alanine Aminotransferase 47 units/L (7-56); Albumin 2.4 g/dL (3.9-5); Blood Urea Nitrogen 5 mg/dL (7-17); Calcium 8.8 mg/dL (8.4-10.2); Hemolysis Index 10
[2020-07-02 16:10] LABS: BUN/Creatinine Ratio 10
[2020-07-02] MEDS ORDERED: REMDESIVIR 200 MG in SODIUM CHLORIDE 0.9% 250ML 250 ML IV ONE (17:00)
[2020-07-02] MEDS ORDERED: oxyCODONE /ACETAMINOPHEN 5-325MG TAB PO ONE (17:09)
[2020-07-02] MEDS ORDERED: SODIUM CHLORIDE 0.9% 50 ML IVPB IV SCH (17:30)
[2020-07-03] MEDS ORDERED: amLODIPine 10 MG TAB PO SCH (10:00)
[2020-07-03] MEDS ORDERED: REMDESIVIR 100 MG in SODIUM CHLORIDE 0.9% 250ML 250 ML IV SCH (21:00)
[2020-07-07] MEDS ORDERED: APIXABAN 5 MG TAB PO SCH (22:00)
== END 2020-07-02 19:12 | disposition home or self-care (01) | DRG 871 ==
LOC: ED 23:16 → CC1 06-30 02:28 → 3A 06-30 14:24
PROVIDERS: ADMIT Internal Medicine Geriatric Medicine; ATTEND Internal Medicine
PROC: XW033E5 Introduction of Remdesivir Anti-infective into Peripheral Vein, Percutaneous Approach, New Technology Group 5 (ICD-10-PCS; principal; 2020-06-30)
DX: A41.89 Other specified sepsis (principal); I26.99 Other pulmonary embolism without acute cor pulmonale; J96.01 Acute respiratory failure with hypoxia; U07.1 COVID-19; J12.82 Pneumonia due to coronavirus disease 2019; E87.1 Hypo-osmolality and hyponatremia; E87.2 Acidosis; Z68.43 Body mass index [BMI] 50.0-59.9, adult; R65.20 Severe sepsis without septic shock; E66.01 Morbid (severe) obesity due to excess calories; I10 Essential (primary) hypertension; J45.909 Unspecified asthma, uncomplicated; Z79.899 Other long term (current) drug therapy
CPT/HCPCS: 36415; 71045; 71275; 80048; 80053; 81001; 82140; 82565; 82728; 82805; 83615; 84145; 85007; 85025; 85027; 85379; 85520; 85610; 85730; 86140; 87040; 87086; 93005; G0378; C9113; J0456; J0696; J1100; J1644; J2270; J7030; Q9967; U0003